=== PATIENT | female | born 1945 | race Caucasian/White ===

== ENCOUNTER 2021-08-19 12:44 | Outpatient (RCR) | payer SELFPAY | END 2021-09-11 | disposition home or self-care (01) | LOC: CARDREHAB | DX: I11.0 Hypertensive heart disease with heart failure (principal); I50.9 Heart failure, unspecified; I25.2 Old myocardial infarction; Z95.5 Presence of coronary angioplasty implant and graft; Z87.891 Personal history of nicotine dependence; E11.9 Type 2 diabetes mellitus without complications ==

== ENCOUNTER 2022-04-15 13:00 | Outpatient (RCR) | payer MEDICARE, OTHER | END 2022-05-13 | disposition home or self-care (01) | LOC: CARDREHAB | DX: Z48.812 Encounter for surgical aftercare following surgery on the circulatory system (principal); Z95.2 Presence of prosthetic heart valve ==

== ENCOUNTER → 2022-07-26 | Outpatient (CLI) | payer MEDICARE, OTHER | LOC: LAB 09:31 | DX: D50.9 Iron deficiency anemia, unspecified (principal) ==

== ENCOUNTER → 2022-08-05 | Outpatient (CLI) | payer MEDICARE, OTHER ==
[2022-08-05 09:55] LABS: POTASSIUM 4.7 mmol/L (3.5-5.1)
[2022-08-05 09:56] LABS: CALCIUM 10.2 mg/dL (8.3-10.5)
== END ==
LOC: LAB 09:25
PROVIDERS: Internal Medicine Cardiovascular Disease
DX: I50.9 Heart failure, unspecified (principal)

== ENCOUNTER 2022-08-20 13:00 | Outpatient (RCR) | payer MEDICARE, OTHER | END 2022-09-11 | disposition home or self-care (01) | LOC: CARDREHAB | DX: Z48.812 Encounter for surgical aftercare following surgery on the circulatory system (principal); Z95.2 Presence of prosthetic heart valve ==

== ENCOUNTER 2023-04-17 20:43 | Emergency (ER) | payer MEDICARE, OTHER ==
[~2023-04-17] VITALS: Ht 152.4 cm; Wt 77.3 kg
[2023-04-17 21:41] LABS: BASO # 0.03 K/mm3 (0.02-0.10); EOS # 0.24 K/mm3 (0.04-0.40); HEMATOCRIT 39.7 % (37.0-47.0); LYMPH# 2.21 K/mm3 (1.50-4.00); MEAN CELL VOLUME 92 fl (78-100); MEAN CORPUSCULAR HEMOGLOBIN 30 pg (27-31); MEAN CORPUSCULAR HGB CONC 33 g/dL (33-37); MONO # 0.85 K/mm3 (0.20-0.80); NEU # 4.55 K/mm3 (1.40-6.50); PLATELET COUNT 226 K/mm3 (130-400); RED BLOOD COUNT 4.31 M/mm3 (4.10-5.30); RED CELL DISTRIBUTION WIDTH 14.4 % (11.5-14.5); WHITE BLOOD COUNT 7.9 K/mm3 (4.8-10.8)
[2023-04-17 21:43] LABS: ALBUMIN 3.8 g/dL (3.4-4.8)
[2023-04-17 21:46] LABS: TOTAL PROTEIN 6.8 g/dL (6.2-8.1)
[2023-04-17 21:47] LABS: TOTAL BILIRUBIN 0.5 mg/dL (0.2-1.2)
[2023-04-17 21:58] LABS: TROPONIN-I 0.032 ng/mL (<0.030)
[2023-04-17 22:31] LABS: URINE APPEARANCE CLEAR; URINE COLOR YELLOW; URINE GLUCOSE NEGATIVE (NEGATIVE); URINE PROTEIN(semi-quant) NEGATIVE (NEGATIVE)
[2023-04-17 22:32] LABS: URINE BILIRUBIN NEGATIVE (NEGATIVE); URINE BLOOD NEGATIVE (NEGATIVE); URINE KETONE NEGATIVE (NEGATIVE); URINE LEUKOCYTE ESTERASE NEGATIVE (NEGATIVE); URINE NITRATE NEGATIVE (NEGATIVE); URINE UROBILINOGEN NORMAL (NORMAL)
[2023-04-17 22:36] LABS: URINE MUCUS PRESENT (NOT PRESENT)
[2023-04-18 00:48] VITALS: BP 143/92
== END 2023-04-18 00:56 | disposition home or self-care (01) ==
LOC: ED 20:43
PROVIDERS: Family Medicine
DX: I70.90 Unspecified atherosclerosis (principal); G45.9 Transient cerebral ischemic attack, unspecified; Z95.1 Presence of aortocoronary bypass graft; Z95.0 Presence of cardiac pacemaker; Z91.040 Latex allergy status

== ENCOUNTER → 2024-05-17 | Outpatient (CLI) | payer MEDICARE, OTHER ==
[~2024-05-17] MED LIST: ASPIRIN E.C. 8181 MG PO; ATORVASTATIN CA80 MG PO; BETAMETHASONE D1 CR2 TP; CLOPIDOGREL75 M2 PO; FEXOFENADINE H180 M1 PO; FLUTICASONE-SA1 EAC4; FUROSEMIDE20 MG PO; GLUCOTROL 5M5 MG/TAB PO; HYDROXYZINE HCL25 M1 PO; ISOSORBIDE30 MG PO; LOSARTAN POTASS25 MG PO; METOPROLOL SUCC25 M1 PO; NEURONTIN300 MG/CAP PO; NITROGLYCERIN0.4 M1 SL; PANTOPRAZOLE SO20 M1 PO; POTASSIUM CHLO20 ME3 PO; PROTONIX20 M1 PO; TERAZOSIN5 MG PO; VITAMIN C60 MG PO
[2024-05-17 15:23] LABS: BASO # 0.03 K/mm3 (0.02-0.10); EOS # 0.22 K/mm3 (0.04-0.40); EOS % 3.3 % (1.0-5.0); HEMATOCRIT 40.2 % (37.0-47.0); LYMPH# 2.15 K/mm3 (1.50-4.00); MEAN CELL VOLUME 93 fl (78-100); MEAN CORPUSCULAR HEMOGLOBIN 30 pg (27-31); MEAN CORPUSCULAR HGB CONC 32 g/dL (33-37); MEAN PLATELET VOLUME 9.8 fl (7.4-10.4); MONO # 0.66 K/mm3 (0.20-0.80); NEU # 3.64 K/mm3 (1.40-6.50); PLATELET COUNT 241 K/mm3 (130-400); RED BLOOD COUNT 4.33 M/mm3 (4.10-5.30); RED CELL DISTRIBUTION WIDTH 14.4 % (11.5-14.5); WHITE BLOOD COUNT 6.7 K/mm3 (4.8-10.8)
[2024-05-17 15:32] LABS: ALBUMIN 4.1 g/dL (3.4-4.8)
[2024-05-17 15:33] LABS: CALCIUM 10.8 mg/dL (8.3-10.5)
[2024-05-17 15:34] LABS: TOTAL PROTEIN 7.2 g/dL (6.2-8.1)
[2024-05-17 15:36] LABS: TOTAL BILIRUBIN 0.3 mg/dL (0.2-1.2)
[2024-05-17 15:41] LABS: MAGNESIUM 1.99 mg/dL (1.60-2.60); URINE APPEARANCE CLEAR (CLEAR); URINE COLOR YELLOW (YELLOW)
[2024-05-17 15:42] LABS: PH-URINE 5.5 (5.0 - 8.0); URINE BILIRUBIN NEGATIVE (NEGATIVE); URINE BLOOD NEGATIVE (NEGATIVE); URINE GLUCOSE NEGATIVE (NEGATIVE); URINE KETONE NEGATIVE (NEGATIVE); URINE LEUKOCYTE ESTERASE NEGATIVE (NEGATIVE); URINE NITRATE NEGATIVE (NEGATIVE); URINE PROTEIN(semi-quant) NEGATIVE (NEGATIVE); URINE WBC 0-1 /hpf (0-3)
[2024-05-17 23:31] LABS: CREATININE OTHER SOURCE 53 mg/dL (63-166)
[2024-05-18 06:22] LABS: PTH,INTACT 184.9 pg/mL (6.6-88.9)
== END ==
LOC: LAB 15:05
PROVIDERS: Internal Medicine
DX: E83.52 Hypercalcemia (principal); I25.5 Ischemic cardiomyopathy; K90.9 Intestinal malabsorption, unspecified; E11.9 Type 2 diabetes mellitus without complications; E78.2 Mixed hyperlipidemia

== ENCOUNTER → 2024-06-22 | Outpatient (CLI) | payer MEDICARE, OTHER | LOC: LAB 09:09 | DX: E21.3 Hyperparathyroidism, unspecified (principal) ==